=== PATIENT | female | born 1985 | race Caucasian/White ===

== ENCOUNTER 2017-09-09 12:24 | Emergency (ER) | payer BC, OTHER ==
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
[2017-09-09] MEDS ORDERED: Sodium Chloride 0.9% 1,000 ML IV ONE (12:46)
[2017-09-09] MEDS ORDERED: Morphine 2 MG/ML Syringe IVPUSH ONE (12:46)
[2017-09-09] MEDS ORDERED: Ondansetron 4 MG/2 ML SDV IVPUSH ONE (12:46)
[2017-09-09] MEDS ORDERED: Sodium Chloride 0.9% 2.5 ML Syringe FLUSH PRN (12:46)
[2017-09-09] MEDS ORDERED: Sodium Chloride 0.9% 10 ML Syringe FLUSH PRN (12:46)
[2017-09-09 13:36] LABS: CHLORIDE,CL 106 mmol/L (98-110); SODIUM,NA 138 mmol/L (136-146)
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
--- NOTE | 2017-09-09 15:34 | CT ---
EXAMINATION: CT chest with contrast HISTORY: Shortness of breath COMPARISON: None TECHNIQUE: Axial CT images obtained through the chest following the administration of 75 mL of Isovue -370 the right antecubital fossa. Coronal and sagittal reconstructions obtained. FINDINGS: The lungs are clear without focal consolidation. No pleural effusion or pneumothorax. Heart is normal in size without a pericardial effusion. The thoracic aorta is normal in caliber. Main pulm onary arteries are patent. No mediastinal or hilar lymphadenopathy, no axillary lymphadenopathy. The central airways are clear. The visualized images of the upper abdomen appear normal. The osseous structures appear normal. IMPRESSION: Unremarkable CT chest.
[2017-09-09] MEDS ORDERED: Iopamidol 755 MG/ML 500 ML Multipack Bottle IVPUSH STA (18:32)
== END 2017-09-09 16:04 | disposition home or self-care (01) ==
LOC: MW.ED 12:24
DX: S63.602A Unspecified sprain of left thumb, initial encounter (principal); S40.012A Contusion of left shoulder, initial encounter; S20.212A Contusion of left front wall of thorax, initial encounter; Z79.899 Other long term (current) drug therapy; V86.59XA Driver of other special all-terrain or other off-road motor vehicle injured in nontraffic accident, initial encounter
CPT/HCPCS: 36415; 71260; 73030; 73140; 80053; 81001; 81025; 85025; 96361; 96374; 96375; 99283; J2270; J2405; J7040; Q9967; 99282